=== PATIENT | male | born 1985 | race Two or more races ===

== ENCOUNTER 2025-04-04 01:05 | Emergency (ER) | payer MEDICAID, OTHER ==
[~2025-04-04] VITALS: Ht 190.5 cm; Wt 97.7 kg
[2025-04-04] MEDS: LIDOCAINE 1% HCL (LOCAL ANESTH.) INJ 20ML MDV ID ONE (02:31)
[2025-04-04 03:12] VITALS: BP 118/62; PULSE 85; RESP 18; TEMP 98.2; O2SAT 99
[2025-04-04] MEDS: OXYCODONE W/ ACETAMINOPHEN 5/325MG TABLET PO ONE (03:12)
[2025-04-04] MEDS: ceFAZolin IM 1GM/2.5ML STERILE WATER IM ONE (03:12)
--- NOTE | 2025-04-04 03:14 | DVH ---
CLINICAL INDICATION: index finger injury TECHNIQUE: XY L HAND 3V XRAY Comparison: None FINDINGS/IMPRESSION: : There is no evidence of acute fracture or dislocation. Old healed distal 5th metacarpal fracture. Chronic appearing persistently distracted ulnar styloid pr ocess fracture. Soft tissue swelling and irregularity about the 2nd digit. Soft tissues are otherwise unremarkable.
[2025-04-04] MEDS: ceFAZolin 1GM VL ONE (03:23)
--- NOTE | 2025-04-04 03:49 | ED.PDOC ---
HPI Comments 59-year-old male presents to the ED chief complaint laceration to left index finger. Patient states he was using a saw slipped and cut his middle knuckle. Complaining of pain 8/10 on pain scale pressure type pain bleeding controlled in triage. Denies numbness or weakness. Denies any other known injury. States it happened around 8:00 a.m. today Chief Complaint: Laceration Time Seen by MD: 01:28 Reviewed Notes: Nurses Notes, Medications, Allergies Home Meds Active Scripts Ibuprofen (Ibuprofen) 800 Mg Tab, 800 MG PO Q8HP PRN for 7 Days, #21 TAB Prov:MIRIAM RICE [employer] 04/04/25 Amoxicillin & Pot Clavulanate (AUGMENTIN TABLET) 875 Mg Tb, 875 MG PO BID for 7 Days, #14 TAB Prov:MIRIAM RICE 04/04/25 Information Source: Patient Mode of Arrival: Ambulatory Complexity: Intermediate Laceration Length (cm): 3 Skin Type: Avulsion, Flap, Jagged Past Medical History PAST MEDICAL HISTORY: Denies Surgical History: Denies all surgeries Family History Family History: Unknown Social History Smoker: Non-Smoker Alcohol: Denies ETOH Use Drugs: Denies Drug Use All Other Systems: Reviewed and Negative (see hpi) Physical Exam General Appearance: No Apparent Distress, Normal HEENT: Pharynx Normal Neck: Full Range of Motion, Non-Tender Respiratory: Lungs Clear, No Respiratory Distress, Normal Breath Sounds Cardiovascular: No Murmur, Normal Peripheral Pulses, Regular Rate/Rhythm Breast Exam: Deferred Gastrointestinal: Non Tender, Soft Genitalia: Deferred Pelvic: Deferred Rectal: Deferred Extremities: Normal capillary refill, Normal range of motion Musculoskeletal : Apperance: Normal Neurologic: Alert, No Motor Deficits, Normal Affect, Normal Mood, No Sensory Deficits Cerebellar Function: Normal Reflexes: NOT DONE Skin: Dry, Lacerations (3 cm avulsion left 2nd digit middle phalanx no obvious foreign body bleeding controlled cap refill less than 3 seconds strength sensory motion intact.), Normal Color, Warm Lymphatic: No Adenopathy Was a procedure done? Was a procedure done?: Yes Sedation Sedation?: No Informed consent obtained: Yes Laceration Repair : Location Left 2nd digit middle phalanx Length Avulsion 3 cm Anesthetic: Lidocaine, Without epi, Digital nerve block Laceration Repair Prep: Saline, Betadine, by Irrigation Laceration Repair Wound Comple: epidermis/dermis repair Laceration Repair: Number of sutures (3), Simple Informed consent obtained: Yes Risks, benefits, and alternati: Yes (Patient tolerated well with minimal blood loss) Differential diagnosis Generic Laceration: Fracture, Retained Foriegn Body, Neurovascular Injury, T endon Injury, Abrasion/Contusion X-Ray, Labs, Meds, VS Vital Signs Date Time Temp Pulse Resp B/P (MAP) Pulse Ox O2 Delivery O2 Flow Rate FiO2 04/04/25 03:12 98.2 85 18 118/62 (80) 99 98.2 04/04/25 03:12 85 18 99 Room Air 04/04/25 01:19 97.8 84 17 143/85 94 97.8 Current Medications Medications (Trade) Dose Ordered Sig/Ana Route Start Time Stop Time Status Last Admin Oxycodone/ Acetaminophen (Percocet 5/ 325MG Tablet) 1 tab ONCE ONCE PO 04/04/25 02:45 04/04/25 02:46 DC 04/04/25 03:12 Cefazolin Sodium (Ancef Intramuscular) 1 gm ONCE ONCE IM 04/04/25 03:00 04/04/25 03:01 DC 04/04/25 03:12 X-Ray, Labs, Meds, VS Comment FINDINGS/IMPRESSION: : There is no evidence of acute fracture or dislocation. Old healed distal 5th metacarpal fracture. Chronic appearing persistently distracted ulnar styloid process fracture. Soft tissue swelling and irregularity about the 2nd digit. Soft tissues are otherwise unremarkable. Patient reports tetanus less than five years ago. Patient given 1 g of Ancef. Script prophylactic trial of Augmentin advised take medication as prescribed side effects discussed. Post suture care given advised to remove sutures in 5-7 days follow up in two days for wound re-evaluation. Advised on ER return precautions patient indicates understanding and agrees with discharge plan of care. Time of 1ST Reevaluation: 01:28 Reevaluation 1ST: Unchanged Time of 2ND Reevaluation: 03:50 Reevaluation 2ND: Improved Patient Education/Counseling: Diagnosis, Treatment, Need For Follow Up Family Education/Counseling: Diagnosis, Treatment, Need For Follow Up Departure 1 Departure Time of Disposition: 03:49 Impression: Primary Impression: Finger laceration Qualified Codes: S61.211A - Laceration without foreign body of left index finger without damage to nail, initial encounter Disposition: 01 HOME / SELF CARE / HOMELESS Condition: Stable e-Prescriptions Ibuprofen (Ibuprofen) 800 Mg Tab 800 MG PO Q8HP PRN for 7 Days, #21 TAB Prov: MIRIAM RICE 04/04/25 Amoxicillin & Pot Clavulanate (AUGMENTIN TABLET) 875 Mg Tb 875 MG PO BID for 7 Days, #14 TAB Prov: MIRIAM RICE 04/04/25 Discharged With: Friend Critical Care Note Critical Care Time?: No Stability Stability form required: MIRIAM Damian Apr 04, 2025 03:49
[2025-04-04] MEDS ORDERED: IBUP-1456 PO (03:52)
[2025-04-04] MEDS ORDERED: AUG875T PO (03:52)
== END 2025-04-04 03:55 | disposition home or self-care (01) ==
LOC: ER 01:05
DX: S61.211A Laceration without foreign body of left index finger without damage to nail, initial encounter (principal); X58.XXXA Exposure to other specified factors, initial encounter; Y93.89 Activity, other specified; Y92.89 Other specified places as the place of occurrence of the external cause; Y99.8 Other external cause status
CPT/HCPCS: 12002; 73130; 96372; 99283; J0690; J2003